=== PATIENT | female | born 1975 | race Hispanic/Latino ===

== ENCOUNTER 2017-05-20 16:40 | Observation (INO) | payer OTHER, SELFPAY ==
[2017-05-20 17:28] LABS: Lactic Acid - Sepsis 1.2 mmol/L (0.5-2.2)
[2017-05-20 17:33] LABS: ALT (SGPT) 13 U/L (8-55); AST (SGOT) 16 U/L (5-34); Alkaline Phosphatase 90 U/L (40-150); Anion Gap 11 mmol/L (10-20); BUN (Urea Nitrogen) 12 mg/dL (7.0-18.7); Bilirubin, Total 0.4 mg/dL (0.2-1.2); Calc. Creatinine Clearance 0 mL/min (70-130); Calcium 8.7 mg/dL (7.8-10.44); Carbon Dioxide 27 mmol/L (22-29); Chloride 107 mmol/L (98-107); Estimated GFR-MDRD Greater than 90; Iron 11 ug/dL (50-170); Protein, Total 6.9 g/dL (6.0-8.3)
[2017-05-20 17:41] LABS: #Lymphocytes 1.5 thou/uL (1.20-3.40); #Monocytes 0.6 thou/uL (0.11-0.59); #Neutrophils 3.5 thou/uL (1.40-6.50); %Basophils 0.3 % (0.0-1.0); %Eosinophils 0.8 % (0.0-10.0); %Lymphocytes 26.5 % (21.0-51.0); %Monocytes 10.2 % (0.0-10.0); Hematocrit 17.9 % (36.0-47.0); Mean Platelet Volume 6.2 fL (7.4-10.4); Red Blood Cell (RBC) Count 3.23 mill/uL (4.20-5.40); White Blood Cell (WBC) Count 5.7 thou/uL (4.8-10.8)
[2017-05-20 17:44] LABS: Anisocytosis MODERATE=16-30 cells (100X) (0-5/hpf); Hypochromia MARKED = >30 cells (100X) (0-5/hpf); Microcytosis MODERATE=15-30 cells (100X) (0-5/hpf); Ovalocytes SLIGHT = 2-5 cells (100X) (0-1/hpf); Polychromasia MODERATE = 3-4 cells (100X) (0-2/hpf); Schistocytes SLIGHT = 2-5 cells (100X) (0-1/hpf); Target Cells SLIGHT = 2-5 cells (100X) (0-1/hpf); Tear Drops SLIGHT = 2-5 cells (100X) (0-1/hpf)
[2017-05-20 21:14] VITALS: BMI 35.7
[2017-05-20] MEDS ORDERED: Acetaminophen 325 MG TAB PO PRN (21:15)
[2017-05-20] MEDS ORDERED: Ondansetron ODT 4 MG TAB SL PRN (21:15)
[2017-05-20] MEDS ORDERED: Ondansetron HCl/PF 4 MG/2 ML Vial IVP PRN ×2 (21:15→21:46)
[2017-05-20] MEDS ORDERED: Acetaminophen 500 MG TAB PO PRN (21:46)
[2017-05-20] MEDS ORDERED: Sodium Chloride 0.9% 1,000 ML IV SCH (21:46)
[2017-05-20] MEDS ORDERED: Ondansetron ODT 4 MG TAB PO PRN (21:46)
--- NOTE | 2017-05-21 00:56 | HP ---
DATE OF ADMISSION: 05/20/2017 PRIMARY CARE PROVIDER: Kenny in [place], [place]. CHIEF COMPLAINT: Anemia. HISTORY OF PRESENT ILLNESS: This is a 41-year-old female who presents to [facility] in transfer from [facility] in [place], [place] after the patient was noted with a hemoglobin in the 5 range. The patient states she has had heavy menstrual cycles over the last 2 y ears with her last period lasting approximately 2 weeks. The patient states she has no current mense s and stopped her period approximately 5 days prior to this evaluation. The patient states she has h ad a tubal ligation in the past and her son is now 21 years of age. The patient states she has had 1 with a normal vaginal delivery. The patient does admit to intermittent shortness of breat h and dizziness when walking or moving. The patient also admits to using ibuprofen up to 5-6 tablets every day for right-sided back pain. The patient denied any bright red blood or black stools. The patient denied any significant hematuria. The patient denies any other chronic medications, recent s urgeries, trauma, injury, fever, chills or abdominal pain. The patient denies any history of stomach ulcerations, colon polyps or prior colonoscopy. The patient denies any prior history of transfusion s. In the emergency room, the patient underwent general evaluation with hemoglobin of 5.0 with indic es indicative of iron deficiency component. The patient was typed and crossed and transfusing with 1 unit of packed red blood cells at the time of evaluation. PAST MEDICAL HISTORY: 1. Menorrhagia. 2. Back pain. 3. Chronic anemia, unknown type. PAST SURGICAL HISTORY: Status post bilateral tubal ligation. CURRENT MEDICATIONS: Biee-pxi-kvbdecd ibuprofen. ALLERGIES: No known drug allergies. FAMILY HISTORY: No inheritable diseases per patient report. SOCIAL HISTORY: The patient is , resides in [place], [place]. Currently, unemployed. No alcohol , tobacco or illicit drug use. REVIEW OF SYSTEMS: The following complete review of systems was negative, unless otherwise mentioned in the HPI or below: Constitutional: Weight loss or gain, ability to conduct usual activities. Skin: Rash, itching. Eyes: Double vision, pain. ENT/Mouth: Nose bleeding, neck stiffness, pain, tenderness. Cardiovascular: Palpitations, dyspnea on exertion, orthopnea. Respiratory: Shortness of breath, wheezing, cough, hemoptysis, fever or night sweats. Gastrointestinal: Poor appetite, abdominal pain, heartburn, nausea, vomiting, constipation, or diarr hea. Genitourinary: Urgency, frequency, dysuria, nocturia. Musculoskeletal: Pain, swelling. Neurologic/Psychiatric: Anxiety, depression. Allergy/Immunologic: Skin rash, bleeding tendency. PHYSICAL EXAMINATION: VITAL SIGNS: On admission, blood pressure 120/75, pulse 92, respiratory rate 16, temperature 97.8 de grees Fahrenheit, O2 saturation 100% on room air. GENERAL APPEARANCE: This is a 41-year-old female, alert and oriented x3, pleasant, conversa nt, in no acute distress. HEENT: Pupils are equal, round, and reactive to light and accommodation. Extraocular muscles are in tact. No scleral icterus. Pale conjunctivae noted. Nares patent. OP is clear. Teeth in fair repa ir. NECK: Supple, no cervical adenopathy, no thyromegaly, no carotid bruits, no JVD appreciated. Cervic al spine with full active and passive range of motion. No meningeal signs appreciated. CHEST: Lungs are clear to auscultation bilaterally. CARDIOVASCULAR: S1, S2, without noted murmur. ABDOMEN: Rounded, soft, nontender, nondistended. Bowel sounds are positive in all four quadrants. There is no hepatosplenomegaly, no abdominal bruits, no rebound or guarding appreciated. EXTREMITIES: Warm and dry with good turgor. Pale nail beds. Pulses palpable distally at the dorsal is pedis, posterior tibial and popliteal arteries bilaterally. Capillary refill less than 2 seconds. NEUROLOGIC: Cranial nerves II-XII are grossly intact. No focal or lateralizing signs appreciated. PERTINENT LABORATORY AND X-RAY FINDINGS: Complete metabolic profile within normal limits. Serum iro n level 11, TIBC 504, ferritin 2.0, lactic acid level 1.2. CBC showed a white blood cell count of 5. 7, hemoglobin 5, hematocrit 17.9, MCV 55, platelet count 198 with 62% neutrophils. ASSESSMENT AND PLAN: 1. Symptomatic anemia with microcytic indices. The patient will be observed on the medical unit. W e will transfuse 1 unit of packed red blood cells currently. Appears with iron deficiency component. We will check stool guaiac. Check TSH level. Repeat CBC in the a.m. Likely secondarily to menorr hagia. 2. Menorrhagia. We will consider outpatient referral to [facility] for assessment. No current menses. 3. Prophylaxis. Sequential compression devices while in bed. Pepcid 20 mg p.o. b.i.d. 4. Code status is FULL. Surrogate medical decision maker is patient's spouse.
[2017-05-21 05:15] LABS: ALT (SGPT) 11 U/L (8-55); AST (SGOT) 13 U/L (5-34); Alkaline Phosphatase 72 U/L (40-150); Anion Gap 9 mmol/L (10-20); BUN (Urea Nitrogen) 11 mg/dL (7.0-18.7); Band 1 % (5-11); Bilirubin, Total 0.6 mg/dL (0.2-1.2); Calc. Creatinine Clearance 180 mL/min (70-130); Calcium 8.3 mg/dL (7.8-10.44); Carbon Dioxide 24 mmol/L (22-29); Chloride 107 mmol/L (98-107); Estimated GFR-MDRD Greater than 90; Globulin 2.3 g/dL (2.4-3.5); Hematocrit 23.6 % (36.0-47.0); Hypochromia MODERATE=16-30 cells (100X) (0-5/hpf); Mean Platelet Volume 8.1 fL (7.4-10.4); Neutrophil 53 % (42-75); Ovalocytes SLIGHT = 2-5 cells (100X) (0-1/hpf); Protein, Total 5.6 g/dL (6.0-8.3); Red Blood Cell (RBC) Count 3.72 mill/uL (4.20-5.40); Schistocytes SLIGHT = 2-5 cells (100X) (0-1/hpf); Target Cells SLIGHT = 2-5 cells (100X) (0-1/hpf); Tear Drops SLIGHT = 2-5 cells (100X) (0-1/hpf); White Blood Cell (WBC) Count 5.9 thou/uL (4.8-10.8)
[2017-05-21] MEDS ORDERED: HYDROcodone/Acetaminophen 5/325 mg Tablet PO PRN (08:06)
[2017-05-21] MEDS ORDERED: Sodium Chloride 0.65% Nasal 44 ML BOT EA NARE PRN (08:06)
[2017-05-21] MEDS ORDERED: Senokot 8.6 MG TAB PO PRN (08:06)
[2017-05-21] MEDS ORDERED: Chloraseptic Spray 180 ml Bottle PO PRN (08:06)
[2017-05-21] MEDS ORDERED: hydrALAZINE 20 MG/ML VIAL SLOW IVP PRN (08:06)
[2017-05-21] MEDS ORDERED: Milk Of Magnesia 30 ML UDCUP PO PRN (08:06)
[2017-05-21] MEDS ORDERED: Diabetic Tussin 200 MG/10 ML UDCUP PO PRN (08:06)
[2017-05-21] MEDS ORDERED: Artificial Tears 18 DROP/0.9 ML EA EYE PRN (08:06)
[2017-05-21] MEDS ORDERED: Loperamide HCl 2 MG CAP PO PRN (08:06)
[2017-05-21] MEDS ORDERED: Loratadine 10 MG TAB PO PRN (08:06)
[2017-05-21] MEDS ORDERED: Temazepam 15 MG CAP PO PRN (08:06)
[2017-05-21] MEDS ORDERED: Eucerin (Mineral Oil/Petrolatum,White) 30 gm Jar TOP PRN (08:06)
[2017-05-21] MEDS ORDERED: Acetaminophen 325 MG TAB PO PRN (08:06)
[2017-05-21] MEDS ORDERED: Mag-Al 1200 mg/1200 mg/30 ML UDCUP PO PRN (08:06)
[2017-05-21] MEDS ORDERED: Iron Sucrose Complex 200 MG, Admixture Fee 1 EACH in Sodium Chloride 0.9% 250 ML 250 ML IVPB SCH (08:15)
[2017-05-21] MEDS ORDERED: Ascorbic Acid 500 mg Chewable Tablet PO SCH (09:00)
[2017-05-21] MEDS ORDERED: Famotidine 20 MG TAB PO SCH (09:00)
[2017-05-21] MEDS ORDERED: Folic Acid 1 MG TAB PO SCH (09:00)
--- NOTE | 2017-05-21 09:28 | ULT ---
PELVIC ULTRASOUND: TECHNIQUE: Transabdominal and endovaginal ultrasound of pelvis performed. HISTORY: Menorrhagia. FINDINGS: Uterine measurements are recorded at 9.7 x 5.7 x 4.8 cm. The endometrial stripe is mildly prominent measured at up to 1.2 cm on endovaginal exam. Both ovaries are identified. There are normal-appearing follicles seen bilaterally. Color Doppler w ith spectral analysis demonstrates blood flow to both ovaries. There is 1 large exophytic cyst from the right ovary measuring up to 3.5 x 4.5 cm. No free fluid is seen. IMPRESSION: 1. Large right ovarian cyst. 2. Mildly thickened endometrium. POS: [facility]
--- NOTE | 2017-05-21 10:10 | PDOC.PN ---
- Subjective Encounter Start Date: 05/21/17 Encounter Start Time: 07:30 -: old records requested/rev Patient seen and examined. No new complaints. No overnight events - Objective Resuscitation Status: Resuscitation Status FULL:Full Resuscitation MAR Reviewed: Yes Vital Signs & Weight: Vital Signs (12 hours) Temp Pulse Pulse Resp BP BP Pulse Ox 05/21/17 09:37 97.7 F 70 14 05/21/17 08:00 97.7 F 70 14 106/62 100 05/21/17 01:04 98.2 F 75 18 117/60 100 05/20/17 23:03 98.7 F 74 20 117/64 100 05/20/17 22:48 98.7 F 72 20 120/64 100 I&O: 05/20/17 05/21/17 05/22/17 06:59 06:59 06:59 Intake Total 1093 350 Balance 1093 350 Result Diagrams: 05/21/17 04:11 05/21/17 04:11 Phys Exam - Physical Examination Constitutional: NAD HEENT: PERRLA, moist MMs, sclera anicteric Neck: no JVD, supple Respiratory: no wheezing, no rales, no rhonchi Cardiovascular: RRR, no significant murmur, no rub Gastrointestinal: soft, non-tender, no distention, positive bowel sounds Musculoskeletal: no edema, pulses present Neurological: non-focal, normal sensation, moves all 4 limbs Lymphatic: no nodes Psychiatric: normal affect, A&O x 3 Skin: no rash, normal turgor Dx/Plan (1) Symptomatic anemia Code(s): D64.9 - ANEMIA, UNSPECIFIED Status: Acute (2) Hypothyroidism Code(s): E03.9 - HYPOTHYROIDISM, UNSPECIFIED Status: Chronic (3) Iron deficiency anemia due to chronic blood loss Code(s): D50.0 - IRON DEFICIENCY ANEMIA SECONDARY TO BLOOD LOSS (CHRONIC) Status: Chronic (4) Menorrhagia Code(s): N92.0 - EXCESSIVE AND FREQUENT MENSTRUATION WITH REGULAR CYCLE Status : Chronic (5) Obesity (BMI 30-39.9) Code(s): E66.9 - OBESITY, UNSPECIFIED Status: Chronic - Plan cont current plan of care, plan discussed w/ family * transfuse 1 unit PRBC * transfuse iron * give iron, folic acid, vitamin b12, vitamin c on discharge * pelvic US * outpt [facility] follow up * discharge later today * medication reviewed as below * symptomatic treatment. Review of Systems - Review of Systems Eyes: negative: Pain, Vision Change, Conjunctivae Inflammation, Eyelid Inflammation, Redness, Other ENT: negative: Ear Pain, Ear Discharge, Nose Pain, Nose Discharge, Nose Congestion, Mouth Pain, Mouth Swelling, Throat Pain, Throat Swelling, Other Respiratory: negative: Cough, Dry, Shortness of Breath, Hemoptysis, SOB with Excertion, Pleuritic Pain, Sputum, Wheezing Cardiovascular: negative: Chest Pain, Palpitations, Orthopnea, Paroxysmal Noc. Dyspnea, Edema, Light Headedness, Other Gastrointestinal: negative: Nausea, Vomiting, Abdominal Pain, Diarrhea, Constipation, Melena, Hematochezia, Other Genitourinary: negative: Dysuria, Frequency, Incontinence, Hematuria, Retention , Other Musculoskeletal: negative: Neck Pain, Shoulder Pain, Arm Pain, Back Pain, Hand Pain, Leg Pain, Foot Pain, Other Skin: negative: Rash, Lesions, Ross, Bruising, Other - Medications/Allergies Allergies/Adverse Reactions: Allergies Allergy/AdvReac Type Severity Reaction Status Date / Time No Known Allergies Allergy Unverified 05/20/17 21:12 Medications: Current Medications Acetaminophen (Tylenol) 650 mg PO Q4H PRN PRN Reason: Headache/Fever or Mild Pain Hydrocodone Bitart/Acetaminophen ([place] 5/325) 1 tab PO Q4H PRN PRN Reason: Moderate Pain (4-6) Last Admin: 05/21/17 09:29 Dose: 1 tab Al Hydroxide/Mg Hydroxide (Maalox) 15 ml PO Q4H PRN PRN Reason: Heartburn or Indigestion Artificial Tears (Tears Naturale) 0 drop EA EYE PRN PRN PRN Reason: Dry Eyes Ascorbic Acid (Vitamin C) 500 mg PO DAILY [facility] Last Admin: 05/21/17 09:28 Dose: 500 mg Famotidine (Pepcid) 20 mg PO BID [facility] Last Admin: 05/21/17 09:29 Dose: 20 mg Ferrous [facility]) [facility] Folic Acid (Folvite) 1 mg PO DAILY [facility] Last Admin: 05/21/17 09:29 Dose: 1 mg Guaifenesin (Robitussin Sf) 200 mg PO Q4H PRN PRN Reason: Cough Hydralazine HCl (Apresoline) 10 mg SLOW IVP Q4H PRN PRN Reason: Systolic BP > 180 Iron Sucrose 200 mg/Miscellaneous Medication 1 each/ Sodium Chloride 260 mls @ 125 mls/hr IVPB ONE JIAN Stop: 05/21/17 12:00 Last Admin: 05/21/17 09:28 Dose: 260 mls Levothyroxine Sodium (Synthroid) 25 mcg PO 0600 JIAN Loperamide HCl (Imodium) 2 mg PO PRN PRN PRN Reason: Diarrhea/Loose Stools Loratadine (Claritin) 10 mg PO DAILYPRN PRN PRN Reason: Sinus Symptoms Magnesium Hydroxide (Milk Of Magnesium) 30 ml PO DAILYPRN PRN PRN Reason: Constipation Mineral Oil/White Petrolatum (Eucerin Cream) 0 gm TOP BIDPRN PRN PRN Reason: Dry Skin Ondansetron HCl (Zofran Odt) 4 mg PO Q6H PRN PRN Reason: Nausea/Vomiting Ondansetron HCl (Zofran) 4 mg IVP Q6H PRN PRN Reason: Nausea/Vomiting Phenol (Chloraseptic [place] 180 Ml Bot) 0 ml PO PRN PRN PRN Reason: Sore Throat Senna (Senokot) 2 tab PO HSPRN PRN PRN Reason: Constipation Sodium Chloride (Flush - Normal Saline) 10 ml IVF Q12HR JIAN Last Admin: 05/21/17 09:29 Dose: Not Given Sodium Chloride (Flush - Normal Saline) 10 ml IVF PRN PRN PRN Reason: Saline Flush Sodium Chloride ([place] Nasal [place] 0.65%) 0 ml EA NARE QIDPRN PRN PRN Reason: Nasal Congestion Temazepam (Restoril) 15 mg PO HSPRN PRN PRN Reason: Insomnia
--- NOTE | 2017-05-21 14:00 | DIS ---
PRIMARY CARE PHYSICIAN: [facility] call DATE OF ADMISSION: 05/20/2017 DATE OF DISCHARGE: 05/21/2017 DISCHARGE DISPOSITION: Home. PRIMARY DISCHARGE DIAGNOSES: Symptomatic anemia, status post 3 units transfusion, subclinical hypoth yroidism, menorrhagia, iron deficiency anemia due to chronic blood loss. SECONDARY DISCHARGE DIAGNOSES: Obesity with BMI 35. PRIMARY PROCEDURE/OPERATION: None. RADIOLOGICAL INVESTIGATION: Pelvic ultrasound was done, which showed large right ovarian cyst mildly thickened endometrium. SIGNIFICANT LABORATORY DATA: WBC 5.9, hemoglobin 7.0, platelets 189. Sodium 136, potassium 3.7, BUN 11, creatinine 0.55, ferritin less than 2, LFT normal, TSH 8.05. DISCHARGE MEDICATIONS: Vitamin C 500 mg p.o. daily, vitamin B12 of 1000 mcg p.o. daily, Pepcid 20 mg p.o. b.i.d., ferrous sulfate 325 mg p.o. t.i.d., folic acid 1 mg p.o. daily, Synthroid 25 mcg p.o. d aily. CONTRAINDICATIONS AND CODE STATUS: FULL CODE. INPATIENT CONSULTANTS: Before discharge we are putting consult for [facility] doctor to come and see. T he patient is instructed to follow up with [facility]ELOPMENT[facility] doctor as an outpatient basis. HOSPITAL COURSE: A 41-year-old female with menorrhagia history and chronic iron deficiency anemia wh o was admitted by Dr. Rocha last night for symptomatic anemia. On admission, her hemoglobin was 5.0. She has iron deficiency anemia. Her ferritin is less than 2. This patient was given 2 units of blo od transfusion initially and after that her hemoglobin was 7.0 and that is why this morning I decided to transfuse another unit of blood as well as I am also transfusing iron parenterally and starting a gemma-mentioned medication upon discharge. This patient and her wants to go home later on tod ay and I decided to do pelvic ultrasound and pelvic ultrasound showing ovarian cyst as well as mild e ndometrial wall thickening and that is why decided to consult [facility] doctor before discharge, so they ca n follow up as an outpatient basis. This patient has a hypothyroidism and that is why I started low dose of Synthroid therapy. Overall, this patient is medically stable for discharge. The patient is seen and examined at bedside today. Please see my progress note from today for further details. Plan of care discussed with the family member and her family member agreed to go home today after [facility] evaluation.
--- NOTE | 2017-05-21 16:17 | CON ---
DATE OF CONSULTATION: 05/21/2017 REFERRING PHYSICIAN: Fredi Barton M.D. CHIEF COMPLAINT: Menorrhagia. HISTORY OF PRESENT ILLNESS: The patient is a 41-year-old female, who presented to the hospital after being sent by clinic for symptomatic anemia, hemoglobin was found to be 5. The patient has history of heavy menstrual periods for the last couple of years stating she has 8 days of heavy bleeding with a total of about 15 days with her cycle lasting approximately 23-24 days perhaps. She states that t he days vary from month to month when they began, but after some discussion, best guess is that her c ycles were about 23-24 days. The patient reports that she has tried to address this problem in the p ast with several different kinds of control pills and with an IUD and with Implanon. She repor ts that the IUD created situation of ulcers that required the removal of the IUD, control pills were not functioning properly, and that the Implanon had caused her to gain about 3 pounds a month o f weight and was ultimately removed, and subsequently had a tubal ligation. PAST MEDICAL HISTORY: Menorrhagia, back pain, and chronic anemia. PAST SURGICAL HISTORY: She has had a tubal ligation. CURRENT MEDICATIONS PRIOR TO HOSPITALIZATION: Ibuprofen p.r.n. for pain. ALLERGIES: No known drug allergies. SOCIAL HISTORY: Denies drug, alcohol, or tobacco use. REVIEW OF SYSTEMS: Patient reports weight gain. She reports thinning hair, easy sensitivity to cold , dry skin. PHYSICAL EXAMINATION: VITAL SIGNS: Currently blood pressure is 111/69, temperature 98.2, pulse 67, respiratory rate of 16, satting 100% on room air. GENERAL: She appears to be in no acute distress. She does appear to be somewhat fatigued. Otherwis e she is pleasant to interact with and is cooperative. HEENT: Normocephalic, atraumatic. LUNGS: Clear to auscultation bilaterally. HEART: Regular rate and rhythm. ABDOMEN: Soft and nontender. EXTREMITIES: Nontender, nonedematous. : Deferred at this time. LABORATORY DATA: Significant with a post-transfusion hemoglobin of 7.0 after 1 unit of blood, hemato crit of 23.6, platelet count of 189. Her TSH is 8. Pelvic ultrasound demonstrates a uterus that liz sures 9.7 x 5.7 x 4.8 cm with a mildly prominent endometrial stripe of 1.2 cm. Both ovaries were see n and appeared normal. She does have an exophytic cyst on the right ovary measuring 3.5 x 4.5 cm. ASSESSMENT AND PLAN: The patient is a 41-year-old female with a 2-year history of menorrhagia and ne wly diagnosed hypothyroidism. This new diagnosis may be the cause behind her heavy bleeding. We dis cussed the importance of continuing with a thyroid medication and to follow up as an outpatient for m anagement of this condition as the current medication dosage may not be sufficient for her. I have i ncreased her starting dose from 25 to 50 mcg per day. In addition, I have offered the patient a 2-mo nth course of medroxyprogesterone acetate in an attempt to diminish or eliminate her vaginal bleeding during correction of her hypothyroidism. It is my hope that once her thyroid condition has been cor rected that her periods will be much easier to manage and she may not need any extra therapy for that . We discussed various options including endometrial ablation as the possibility in the future. She has attempted an IUD and Implanon and various control pills with little success and certainly would not consider using these items again at least not until her thyroid condition is controlled. Thank you for the opportunity to participate in Ms. Rosio Clark's care.
[2017-05-21 16:34] VITALS: BP 128/75; TEMP 98
[2017-05-21] MEDS ORDERED: Ferrous Sulfate 325 MG TAB PO SCH (17:00)
[2017-05-22] MEDS ORDERED: Levothyroxine Sodium 25 MCG TAB PO SCH (06:00)
== END 2017-05-21 17:45 | disposition home or self-care (01) ==
LOC: ERS 16:40 → 2SW 21:02
PROVIDERS: ADMIT Internal Medicine Addiction Medicine; ATTEND Internal Medicine Addiction Medicine
DX: D50.0 Iron deficiency anemia secondary to blood loss (chronic) (principal); E03.9 Hypothyroidism, unspecified; N92.0 Excessive and frequent menstruation with regular cycle; E66.9 Obesity, unspecified; Z68.35 Body mass index [BMI] 35.0-35.9, adult; Z98.51 Tubal ligation status
CPT/HCPCS: 36415; 36430; 76856; 80053; 82274; 82728; 83540; 83550; 83605; 84443; 85007; 85025; 85027; 85060; 86850; 86900; 86901; 94760; 96365; 96366; G0378; J1756; J7050; P9016

== ENCOUNTER 2019-02-26 12:14 | Emergency (ER) | payer OTHER, SELFPAY ==
[2019-02-26] MEDS ORDERED: Adacel (T-DAP) 0.5 ML SYRINGE ONE (12:52)
== END 2019-02-26 13:00 | disposition home or self-care (01) ==
LOC: ERS 12:14
DX: L03.115 Cellulitis of right lower limb (principal); D64.9 Anemia, unspecified
CPT/HCPCS: 90471; 90715

== ENCOUNTER 2019-02-28 13:40 | Emergency (ER) | payer SELFPAY ==
[2019-02-28 15:10] LABS: #Eosinphils 0.5 thou/uL (0.0-0.7); #Lymphocytes 1.9 thou/uL (1.20-3.40); #Monocytes 0.5 thou/uL (0.11-0.59); #Neutrophils 6.6 thou/uL (1.40-6.50); %Basophils 0.2 % (0.0-1.0); %Eosinophils 4.9 % (0.0-10.0); %Monocytes 5.6 % (0.0-10.0); %Neutrophils 69.4 % (42.0-75.0); Hemoglobin 14.9 g/dL (12.0-16.0); Mean Corpuscular HGB CONC 34.4 g/dL (32.0-36.0); Mean Corpuscular Hemoglobin 31.7 pg (27.0-31.0); Mean Corpuscular Volume 92.3 fL (78.0-98.0); Mean Platelet Volume 8.4 fL (7.4-10.4); Platelet Count 197 thou/uL (130-400); RBC Distribution Width 11.7 % (11.5-14.5); Red Blood Cell (RBC) Count 4.69 mill/uL (4.20-5.40); White Blood Cell (WBC) Count 9.5 thou/uL (4.8-10.8)
[2019-02-28 15:33] LABS: ALT (SGPT) 31 U/L (8-55); AST (SGOT) 27 U/L (5-34); Albumin 4.3 g/dL (3.5-5.0); Alkaline Phosphatase 110 U/L (40-150); Anion Gap 11 mmol/L (10-20); BUN (Urea Nitrogen) 13 mg/dL (7.0-18.7); Bilirubin, Total 0.3 mg/dL (0.2-1.2); CRP (Inflammatory) 0.64 mg/dL (= or < 0.5); Calc. Creatinine Clearance 0 mL/min (70-130); Calcium 9.5 mg/dL (7.8-10.44); Carbon Dioxide 26 mmol/L (22-29); Chloride 102 mmol/L (98-107); Estimated GFR-MDRD 84; Globulin 3.2 g/dL (2.4-3.5); Glucose 97 mg/dL (70-105); Potassium 4.2 mmol/L (3.5-5.1); Protein, Total 7.5 g/dL (6.0-8.3); Sodium 135 mmol/L (136-145)
[2019-02-28 15:48] LABS: Bilirubin Negative (Negative); Blood, Urine Negative (Negative); Clarity Clear (Clear); Glucose, Urine (Dipstick) Normal (Negative); Leukocyte Negative Leu/uL (Negative); Nitrite Negative (Negative); Protein, Urine (Dipstick) Negative (Neg-Trace); Urobilinogen Normal mg/dL (Less than 2)
== END 2019-02-28 17:03 | disposition home or self-care (01) ==
LOC: ERS 13:40
DX: L95.9 Vasculitis limited to the skin, unspecified (principal); R21 Rash and other nonspecific skin eruption; D50.9 Iron deficiency anemia, unspecified; Z79.899 Other long term (current) drug therapy
CPT/HCPCS: 36415; 80053; 81003; 85025; 85652; 86140; 99283

== ENCOUNTER 2019-12-02 15:26 | Emergency (ER) | payer OTHER ==
[2019-12-02] MEDS ORDERED: Acetaminophen 500 MG TAB ONE (16:47)
[2019-12-02] MEDS ORDERED: Ketorolac Tromethamine 30 MG/ML VIAL ONE (16:47)
[2019-12-02] MEDS ORDERED: HYDROcodone/Acetaminophen 5/325 mg Tablet ONE (16:47)
--- NOTE | 2019-12-02 17:01 | RAD ---
Exam: 2 views lumbar spine HISTORY: Pain. Pain radiates to the back of her thighs and knees. COMPARISON: none FINDINGS: Straightening of lumbar lordosis is presumed to be due to patient position or muscle spasm. No spondylolisthesis or spondylolysis. 5 lumbar type vertebra. Vertebral body height is maintained. No fracture. Disc space heights are preserved. Visualized bony pelvis and sacrum are intact. IMPRESSION: No radiographic evidence of acute abnormality. Nonemergent lumbar spine MRI can be perfor med.
== END 2019-12-02 19:08 | disposition home or self-care (01) ==
LOC: ERS 15:26
DX: M54.42 Lumbago with sciatica, left side (principal); D50.9 Iron deficiency anemia, unspecified
CPT/HCPCS: 72100; 96372; J1885

== ENCOUNTER 2022-01-08 23:04 | Emergency (ER) | payer OTHER, SELFPAY ==
[2022-01-09 00:14] LABS: #Eosinphils 0.1 thou/uL (0.0-0.7); #Lymphocytes 0.6 thou/uL (1.20-3.40); #Monocytes 0.6 thou/uL (0.11-0.59); #Neutrophils 8.2 thou/uL (1.40-6.50); %Eosinophils 0.7 % (0.0-10.0); %Lymphocytes 6.7 % (21.0-51.0); %Monocytes 5.9 % (0.0-10.0); %Neutrophils 86.7 % (42.0-75.0); Hemoglobin 15.4 g/dL (12.0-16.0); Mean Corpuscular HGB CONC 33.3 g/dL (32.0-36.0); Mean Corpuscular Hemoglobin 31.3 pg (27.0-31.0); Mean Corpuscular Volume 94.2 fL (78.0-98.0); Mean Platelet Volume 8.6 fL (7.4-10.4); Platelet Count 197 thou/uL (130-400); RBC Distribution Width 11.7 % (11.5-14.5); Red Blood Cell (RBC) Count 4.92 mill/uL (4.20-5.40); White Blood Cell (WBC) Count 9.5 thou/uL (4.8-10.8)
[2022-01-09 00:36] LABS: ALT (SGPT) 18 U/L (8-55); AST (SGOT) 25 U/L (5-34); Albumin 4.1 g/dL (3.5-5.0); Alkaline Phosphatase 114 U/L (40-110); Anion Gap 15 mmol/L (10-20); BUN (Urea Nitrogen) 6 mg/dL (7.0-18.7); Bilirubin, Total 0.6 mg/dL (0.2-1.2); Calc. Creatinine Clearance 0 mL/min (70-130); Calcium 8.7 mg/dL (7.8-10.44); Carbon Dioxide 23 mmol/L (22-29); Chloride 100 mmol/L (98-107); Estimated GFR 113; Globulin 3.2 g/dL (2.4-3.5); Glucose 120 mg/dL (70-105); Lipase 9 U/L (8-78); Potassium 3.7 mmol/L (3.5-5.1); Protein, Total 7.3 g/dL (6.0-8.3); Sodium 134 mmol/L (136-145)
[2022-01-09] MEDS ORDERED: Ondansetron ODT 4 MG TAB ONE (01:09)
[2022-01-09 01:43] LABS: Bilirubin Negative (Negative); Blood, Urine Negative (Negative); Clarity Clear (Clear); Glucose, Urine (Dipstick) Normal (Negative); Ketone, Urine Greater than 150 mg/dL (Negative); Leukocyte Negative Leu/uL (Negative); Nitrite Negative (Negative); Protein, Urine (Dipstick) 20 mg/dL (Neg-Trace); Specific Gravity, Urine 1.026 (1.002-1.036); Urobilinogen Normal mg/dL (Less than 2)
[2022-01-09] MEDS ORDERED: Ketorolac Tromethamine 30 MG/ML VIAL ONE (01:51)
[2022-01-09] MEDS ORDERED: diphenhydrAMINE 50 MG/ML VIAL ONE (01:51)
[2022-01-09] MEDS ORDERED: Metoclopramide HCl 10 MG/2 ML VIAL ONE (02:08)
[2022-01-09 02:16] LABS: Magnesium 1.7 mg/dL (1.6-2.6)
[2022-01-09] MEDS ORDERED: Iopamidol 370 76% 100 ML VIAL ONE (11:14)
== END 2022-01-09 07:41 | disposition home or self-care (01) ==
LOC: ERS 23:04
DX: K80.20 Calculus of gallbladder without cholecystitis without obstruction (principal); Z20.822 Contact with and (suspected) exposure to COVID-19; D50.9 Iron deficiency anemia, unspecified
CPT/HCPCS: 36415; 70450; 71045; 74177; 76705; 80053; 81003; 83690; 83735; 84443; 84484; 85025; 93005; 96374; 96375; J1200; J1885; J2765; Q0162; Q9967; U0003; U0005

== ENCOUNTER 2022-02-21 12:43 | Emergency (ER) | payer OTHER, SELFPAY ==
[2022-02-21] MEDS ORDERED: Ketorolac Tromethamine 30 MG/ML VIAL ONE (13:55)
== END 2022-02-21 14:16 | disposition home or self-care (01) ==
LOC: ERS 12:43
DX: M54.41 Lumbago with sciatica, right side (principal)
CPT/HCPCS: 96372; 99283; J1885

== ENCOUNTER 2022-04-25 08:17 | Outpatient (CLI) | payer OTHER | END 2022-04-25 08:18 | disposition home or self-care (01) | LOC: BICRAD 08:17 | PROVIDERS: ATTEND Family Medicine | DX: M54.50 Low back pain, unspecified (principal); M47.816 Spondylosis without myelopathy or radiculopathy, lumbar region | CPT/HCPCS: 72100 ==

== ENCOUNTER 2022-07-02 20:59 | Emergency (ER) | payer OTHER ==
[2022-07-02] MEDS ORDERED: Acetaminophen 500 MG TAB ONE (21:48)
[2022-07-02] MEDS ORDERED: Ondansetron PF 4 MG/2 ML Vial ONE (21:48)
[2022-07-02] MEDS ORDERED: diphenhydrAMINE 50 MG/ML VIAL ONE (22:08)
[2022-07-02] MEDS ORDERED: Metoclopramide HCl 10 MG/2 ML VIAL ONE (22:08)
[2022-07-02 22:12] LABS: #Eosinphils 0.1 thou/uL (0.0-0.7); #Lymphocytes 0.5 thou/uL (1.20-3.40); #Neutrophils 8.2 thou/uL (1.40-6.50); %Basophils 0.2 % (0.0-1.0); %Eosinophils 0.6 % (0.0-10.0); %Lymphocytes 4.9 % (21.0-51.0); %Monocytes 10.3 % (0.0-10.0); Hemoglobin 15.8 g/dL (12.0-16.0); Mean Corpuscular HGB CONC 33.6 g/dL (32.0-36.0); Mean Corpuscular Hemoglobin 31.3 pg (27.0-31.0); Mean Corpuscular Volume 93.1 fl (78.0-98.0); Mean Platelet Volume 8.8 fL (7.4-10.4); Platelet Count 176 10x3/uL (130-400); RBC Distribution Width 11.6 % (11.5-14.5); Red Blood Cell (RBC) Count 5.04 mill/uL (4.20-5.40); White Blood Cell (WBC) Count 9.8 10x3/uL (4.8-10.8)
[2022-07-02 22:27] LABS: BHCG - Serum Negative (NEGATIVE); Pregs Control Background? CLEAR/WHITE (CLR/WHITE); Pregs Control Bar Appear? YES (CONTROL BAR)
[2022-07-02 22:33] LABS: ALT (SGPT) 18 U/L (8-55); AST (SGOT) 19 U/L (5-34); Albumin 4.5 g/dL (3.5-5.0); Alkaline Phosphatase 99 U/L (40-110); Anion Gap 15 mmol/L (10-20); BUN (Urea Nitrogen) 6 mg/dL (7.0-18.7); Bilirubin, Total 0.4 mg/dL (0.2-1.2); Calc. Creatinine Clearance 0 mL/min (70-130); Calcium 9.6 mg/dL (7.8-10.44); Carbon Dioxide 24 mmol/L (22-29); Chloride 99 mmol/L (98-107); Estimated GFR 110; Globulin 3.4 g/dL (2.4-3.5); Glucose 122 mg/dL (70-105); Protein, Total 7.9 g/dL (6.0-8.3); Sodium 134 mmol/L (136-145)
[2022-07-02 23:21] LABS: Bilirubin Negative (Negative); Blood, Urine Negative (Negative); Clarity Clear (Clear); Glucose, Urine (Dipstick) Normal (Negative); Ketone, Urine Trace mg/dL (Negative); Leukocyte Negative Leu/uL (Negative); Nitrite Negative (Negative); Protein, Urine (Dipstick) Negative (Neg-Trace); Specific Gravity, Urine 1.007 (1.002-1.036); Urobilinogen Normal mg/dL (Less than 2); pH, Urine 5.5 (5.0-9.0)
[2022-07-03 01:45] LABS: SARS-CoV-2 NAA Rapid Test DETECTED (NotDetected)
== END 2022-07-03 01:30 | disposition home or self-care (01) ==
LOC: ERS 20:59
DX: U07.1 COVID-19 (principal); G43.909 Migraine, unspecified, not intractable, without status migrainosus
CPT/HCPCS: 80053; 81003; 83605; 84703; 85025; 96374; 96375; J1200; J2405; J2765